=== PATIENT | male | born 1970 | race Caucasian/White ===

== ENCOUNTER 2018-01-17 15:55 | Emergency (ER) | payer OTHER ==
[~2018-01-17] VITALS: Ht 180.3 cm; Wt 104.3 kg
[~2018-01-17 15:55] MED LIST: ALEVE COLD & S1 EACH; FLEXERIL PO; HYDROCODONE-AP1 EAC6 PO; IBUPROFEN 800800 M1 PO; NASONEX17 GM
[2018-01-17 16:02] VITALS: BP 137/89
== END 2018-01-17 16:47 | disposition home or self-care (01) ==
LOC: M.ERS 15:55
DX: S63.692A Other sprain of right middle finger, initial encounter (principal); X58.XXXA Exposure to other specified factors, initial encounter; Y93.89 Activity, other specified; Y92.89 Other specified places as the place of occurrence of the external cause; Y99.8 Other external cause status